=== PATIENT | female | born 1995 | race Caucasian/White ===

== ENCOUNTER → 2020-08-17 | Day surgery (SDC) | payer OTHER, BC | END | disposition home or self-care (01) | LOC: JRADIR 07:58 → JRADIROP 07:58 → EDSTATUS 08:00 | PROVIDERS: ATTEND Orthopaedic Surgery Sports Medicine | PROC: BP1 Imaging, Non-Axial Upper Bones, Fluoroscopy (ICD-10-PCS; principal; 2020-08-17) | PROC: BP39Y0Z Magnetic Resonance Imaging (MRI) of Left Shoulder using Other Contrast, Unenhanced and Enhanced (ICD-10-PCS; 2020-08-17) | DX: M25.512 Pain in left shoulder (principal) | CPT/HCPCS: 23350; 73040-TC-FY; 73222-TC; 84703 ==

== ENCOUNTER → 2020-11-01 | Day surgery (SDC) | payer OTHER, BC ==
[2020-10-19 12:40] VITALS: BMI 42.9
[2020-11-01 09:06] VITALS: BP 135/92; PULSE 76; TEMP 98
== END | disposition home or self-care (01) ==
LOC: FASU 08:41
PROVIDERS: ATTEND Orthopaedic Surgery Sports Medicine
DX: Z53.8 Procedure and treatment not carried out for other reasons (principal)
CPT/HCPCS: 84703

== ENCOUNTER 2020-12-13 06:07 | Day surgery (SDC) | payer OTHER, BC ==
[2020-12-11 12:43] VITALS: BMI 38.2
[2020-12-13] MEDS ORDERED: MIDAZOLAM HCL 2 MG/2 ML SINGLE DOSE VIAL ONE (07:03)
[2020-12-13] MEDS ORDERED: ROPIVACAINE HCL 0.5% 30ML VIAL ONE (07:03)
[2020-12-13] MEDS ORDERED: PROPOFOL 20 ML ONE (07:10)
[2020-12-13] MEDS ORDERED: LIDOCAINE HCL/PF 2% SDV 5ML VIAL ONE (07:11)
[2020-12-13] MEDS ORDERED: ONDANSETRON 4 MG/2 ML VIAL ONE (07:13)
[2020-12-13] MEDS ORDERED: DEXAMETHASONE SOD PHOSPHATE 4 MG/1 ML VIAL ONE (07:13)
[2020-12-13] MEDS ORDERED: ceFAZolin SODIUM 1 GM VIAL ONE (07:13)
[2020-12-13] MEDS ORDERED: KETOROLAC TROMETHAMINE 30 MG/1 ML VIAL ONE (07:13)
[2020-12-13] MEDS ORDERED: TRANEXAMIC ACID 1000 MG/10 ML VIAL ONE (09:11)
[2020-12-13] MEDS ORDERED: ONDANSETRON 4 MG/2 ML VIAL IVPUSH PRN (09:39)
[2020-12-13 10:37] VITALS: TEMP 98.2
[2020-12-13 11:43] VITALS: BP 114/74; PULSE 82
== END 2020-12-13 10:40 | disposition home or self-care (01) ==
LOC: FASU 06:07
PROVIDERS: ATTEND Orthopaedic Surgery Sports Medicine
PROC: 0LS44ZZ Reposition Left Upper Arm Tendon, Percutaneous Endoscopic Approach (ICD-10-PCS; principal; 2020-12-13 08:17)
PROC: 0RNK4ZZ Release Left Shoulder Joint, Percutaneous Endoscopic Approach (ICD-10-PCS; 2020-12-13 08:17)
DX: M75.02 Adhesive capsulitis of left shoulder (principal); M75.22 Bicipital tendinitis, left shoulder
CPT/HCPCS: 81025; 94760